=== PATIENT | male | born 1970 | race Caucasian/White ===

== ENCOUNTER → 2019-01-18 | Outpatient (CLI) | payer MEDICARE, OTHER ==
--- NOTE | 2019-01-19 13:54 | XR ---
EXAMINATION TYPE: XR cervical spine comp DATE OF EXAM: 01/18/2019 TECHNIQUE: Frontal, lateral, oblique, and open mouth view of the cervical spine are obtained. HISTORY: [id number] cervicalgia chronic neck pain with limited range of motion. COMPARISON: Cervical spine x-ray August 17, 2011. FINDINGS: The cervical spine is visualized in its entirety from C1 thru the top of T1 level, it is s table and straightened in alignment without evidence of acute fracture or dislocation. The pre-verte bral soft tissue remains within normal limits. The C1-C2 articulation is within normal limits on the open mouth view. There is interval removal of anterior fusion plate with new fusion plate C6-C7 leve l. High density disc material C4-C5 and C5-C6 level is again seen. Some desired ossific fusion or art hrodesis is noted at these levels. Oblique images are felt within normal limits. Overlying soft tissu e is unremarkable. IMPRESSION: Successful arthrodesis or fusion C4-C6 level. New anterior fusion plate C6-C7 level with satisfactory and straightened alignment.
== END | disposition home or self-care (01) ==
LOC: RADXRYALE 11:00
PROVIDERS: ATTEND Family Medicine
DX: M54.2 Cervicalgia (principal); Z98.1 Arthrodesis status
CPT/HCPCS: 72050

== ENCOUNTER → 2020-04-21 | Outpatient (CLI) | payer MEDICARE, OTHER ==
--- NOTE | 2020-04-22 08:18 | XR ---
EXAMINATION TYPE: XR chest 2V DATE OF EXAM: 04/21/2020 COMPARISON: None HISTORY: 50-year-old male with cough, smoker TECHNIQUE: Frontal and lateral views FINDINGS: Heart normal size. Aorta within normal limits. Mild central peribronchial cuffing. Mild hyperinflatio n. No consolidation, pneumothorax, or pleural effusion seen. IMPRESSION: Correlate for underlying COPD. Central peribronchial cuffing suggests underlying bronchitis. Otherwis e, no acute process seen.
--- NOTE | 2020-04-22 08:19 | XR ---
EXAMINATION TYPE: XR hand complete RT DATE OF EXAM: 04/21/2020 COMPARISON: NONE HISTORY: 50-year-old male right hand pain, lump over the fourth metacarpal TECHNIQUE: 3 views FINDINGS: There is a old healed mildly angulated fracture deformity of the fifth metacarpal. Tiny loose body or fragment is for ulnar aspect of the third MCP joint appears chronic. No acute fracture, subluxation, or dislocation. IMPRESSION: Old healed mildly angulated fracture deformity of the fifth metacarpal. No acute osseous abnormality seen.
== END | disposition home or self-care (01) ==
LOC: RADXRYALE 16:16
PROVIDERS: ATTEND Family Medicine
DX: M25.541 Pain in joints of right hand (principal); R05 Cough
CPT/HCPCS: 71046

== ENCOUNTER → 2021-06-28 | Outpatient (CLI) | payer MEDICARE ==
--- NOTE | 2021-06-28 12:36 | XR ---
EXAMINATION TYPE: XR cervical spine comp DATE OF EXAM: 06/28/2021 TECHNIQUE: Frontal, lateral, oblique, and open mouth view of the cervical spine are obtained. HISTORY: [id number] CERVICALGIA,DDD right arm numbness with right neck pain. COMPARISON: Cervical spine x-ray January 18, 2019 FINDINGS: The cervical spine is redemonstrated from C1 thru the inferior C7 level, it is stable and straightened in alignment without evidence of acute fracture or dislocation. The pre-vertebral soft tissue appears within normal limits. The C1-C2 articulation is within normal limits on the open mout h view. Artificial disc material with some ossific fusion C4-C5 and C5-C6 levels is redemonstrated. A nterior fusion plate C6-C7 level again seen. Incomplete evaluation C7-T1 disc space without swimmer's view. The oblique images are within normal limits. Overlying soft tissue is unremarkable. Prominent bilateral C7 cervical ribs noted. IMPRESSION: As above. No significant change from most recent x-ray.
== END | disposition home or self-care (01) ==
LOC: RADXRYALE 12:10
PROVIDERS: ATTEND Family Medicine
DX: M54.2 Cervicalgia (principal); R20.0 Anesthesia of skin; Z98.1 Arthrodesis status
CPT/HCPCS: 72050